=== PATIENT | male | born 1985 | race Caucasian/White ===

== ENCOUNTER → 2017-05-12 12:58 | Outpatient (CLI) | payer BC | END | disposition home or self-care (01) | LOC: D.RAD 09:45 | DX: K59.00 Constipation, unspecified (principal) ==

== ENCOUNTER → 2017-05-17 13:17 | Outpatient (CLI) | payer BC ==
[2017-05-17 14:09] LABS: ALBUMIN 4.5 g/dL (3.4-5.0); BILIRUBIN - TOTAL 0.6 mg/dL (0.2-1.3); CALCIUM 8.8 mg/dL (8.5-10.1); CARBON DIOXIDE 25.2 mmol/L (21.0-32.0); CREATININE - SERUM 1.3 mg/dL (0.6-1.3); POTASSIUM - SERUM 4.2 mmol/L (3.5-5.1); PROTEIN - SERUM 7.4 g/dL (6.4-8.2)
== END | disposition home or self-care (01) ==
LOC: D.LAB 13:17
PROVIDERS: Family Medicine
DX: R42 Dizziness and giddiness (principal)